=== PATIENT | female | born 1945 | race Caucasian/White ===

== ENCOUNTER 2025-04-09 08:57 | Outpatient (CLI) | payer MEDICARE, OTHER ==
[2025-04-09 09:43] LABS: Estimated GFR - POC 74.0
[2025-04-09] MEDS ORDERED: Iopamidol-370 76% 500 ML MDV (1 ML CHARGE) ONE (10:24)
== END 2025-04-09 08:58 | disposition home or self-care (01) ==
LOC: CT 08:57
PROVIDERS: ATTEND Internal Medicine
DX: K21.9 Gastro-esophageal reflux disease without esophagitis (principal); K44.9 Diaphragmatic hernia without obstruction or gangrene; I25.10 Atherosclerotic heart disease of native coronary artery without angina pectoris; J98.11 Atelectasis; K57.10 Diverticulosis of small intestine without perforation or abscess without bleeding; I70.0 Atherosclerosis of aorta
CPT/HCPCS: 36415; 71260; 74177; 82565; Q9967